=== PATIENT | male | born 1990 | race Caucasian/White ===

== ENCOUNTER 2023-12-18 16:32 | Emergency (ER) | payer OTHER ==
[~2023-12-18] VITALS: Ht 172.7 cm; Wt 102.1 kg
[2023-12-18 16:32] VITALS: BP 166/105; PULSE 113; RESP 20; TEMP 98.1; O2SAT 98
[2023-12-18] MEDS ORDERED: ASPIRIN ONE (16:48)
[2023-12-18] MEDS: ASPIRIN PO STA (16:49)
[2023-12-18 16:53] LABS: BASOPHIL % 0.2 % (0.0-0.2); EOSINOPHIL # 0.1 10^3/uL (0.0-0.2); EOSINOPHIL % 1.2 % (0.0-5.0); HEMATOCRIT(ML) 48.7 % (37.0-53.0); HEMOGLOBIN 16.7 g/dL (13.9-16.3); LYMPHOCYTES # 3.84 10^3/uL1 (1.0-4.8); LYMPHOCYTES % 39.3 % (24.0-44.0); MEAN CORP HGB 29.2 pg (26-34); MEAN CORP HGB CONCENTRATION 34.3 g/dL (33-36.5); MEAN CORP VOLUME 85.1 fL (78-100); MONOCYTES # 1.2 10^3/uL (0.3-0.8); MONOCYTES % 12.4 % (5.0-12.0); NEUTROPHIL # 4.5 10^3/uL (1.8-7.7); NEUTROPHILS % 46.2 % (41.0-85.0); PLATELET COUNT 266 10^3/uL (150-400); RED BLOOD CELL 5.72 10^6/uL (4.50-5.90); RED CELL DISTRIBUTION WIDTH 12.4 % (11.5-14.5); WHITE BLOOD CELL 9.8 10^3/uL (4.5-11.0)
[2023-12-18 16:54] LABS: +ADD MANUAL DIFF(NO CHRG) NO
[2023-12-18] MEDS ORDERED: XANAX ONE (17:05)
[2023-12-18] MEDS: XANAX PO STA (17:07)
[2023-12-18 17:09] LABS: PROTHROMBIN PROTIME 10.8 SEC (9.7-11.6)
[2023-12-18 17:23] LABS: ALBUMIN(ML) 4.2 g/dL (3.4-5.0); ALBUMIN/GLOBULIN RATIO 1.2; ANION GAP 15.2; BUN/CREATININE RATIO 8.78 (10.0-20.0); CALCIUM 8.7 mg/dL (8.4-10.5); CARBON DIOXIDE 25.2 mmol/L (20.0-32); CREATINE KINASE MB 0.7 ng/mL (0.5-3.6); CREATININE SERUM 1.48 mg/dL (0.59-1.40); EST GFR, NON-AA 54.7 (>/=60); POTASSIUM 3.4 mmol/L (3.6-5.2)
[2023-12-18 17:37] VITALS: BP 167/110; PULSE 98; RESP 18; O2SAT 96
[2023-12-18 18:31] VITALS: BP 140/91; PULSE 92; RESP 18; O2SAT 96
[2023-12-18 19:46] VITALS: BP 150/89; PULSE 92; RESP 18; TEMP 98.1; O2SAT 96
== END 2023-12-18 19:49 | disposition home or self-care (01) ==
LOC: ER 16:32
DX: R07.9 Chest pain, unspecified (principal); R42 Dizziness and giddiness; R00.2 Palpitations
CPT/HCPCS: 99285; 71045; 80053; 85025; 36415; 84484 ×2; 82553; 83880; 82550; 85610; 85730; 93005; J8499; 80307

== ENCOUNTER → 2024-01-28 | Outpatient (CLI) | payer OTHER | END | disposition home or self-care (01) | LOC: RAD 15:37 | PROVIDERS: ATTEND Nurse Practitioner Family | DX: G62.9 Polyneuropathy, unspecified (principal) | CPT/HCPCS: 72040; 72072 ==